=== PATIENT | male | born 1965 | race African-American/Black ===

== ENCOUNTER 2018-06-04 16:37 | Emergency (ER) | payer SELFPAY ==
[~2018-06-04] VITALS: Ht 175.3 cm; Wt 82.0 kg
[2018-06-04] MEDS ORDERED: IBUPROFEN 600MG TABLET PO ONE (18:30)
[2018-06-04 21:03] VITALS: BP 124/81
== END 2018-06-04 21:06 | disposition home or self-care (01) ==
LOC: ER 16:37
DX: M79.671 Pain in right foot (principal); F17.200 Nicotine dependence, unspecified, uncomplicated; Z88.0 Allergy status to penicillin
CPT/HCPCS: 73650; 99283